=== PATIENT | female | born 1980 | race Caucasian/White ===

== ENCOUNTER 2018-06-12 19:32 | Emergency (ER) | payer BC ==
--- NOTE | 2018-06-12 20:10 | RAD REPORT ---
EXAM DESCRIPTION: CT - Ct Stroke Brain Wo Cont - 06/12/2018 7:58 pm CLINICAL HISTORY: TIA/CVA COMPARISON: None TECHNIQUE: All CT scans are performed using dose optimization technique as appropriate and may inclu de automated exposure control or mA/KV adjustment according to patient size. FINDINGS: No intracranial hemorrhage, hydrocephalus or extra-axial fluid collection.No areas of brai n edema or evidence of midline shift. The paranasal sinuses and mastoids are clear. The calvarium is intact. IMPRESSION: No acute intracranial abnormality.
[2018-06-12 20:11] LABS: Absolute Lymphocytes (CBC) 3.4 K/uL (0.7-4.9); Absolute Monocytes 0.9 K/uL (0.1-1.3); Absolute Neutrophil 4.3 K/uL (1.8-8.0); Basophils % 0.8 % (0-1.3); Eosinophils % 5.9 % (0-4.4); Hematocrit 44.2 % (36.0-45.0); Lymphocytes % 36.9 % (15.3-44.8); MCH 30.6 pg (27.0-35.0); MCV 90.4 fL (80-100); Monocytes % 9.8 % (3.3-12.3); RBC Red Blood Cell Count 4.89 M/uL (3.86-4.86)
[2018-06-12 20:17] LABS: Protime INR 1.07
[2018-06-12] MEDS ORDERED: NA CHLORIDE 0.9% 1,000 ML ONE (20:18)
[2018-06-12] MEDS ORDERED: ALTEPLASE 100 ML IV ONE (20:25)
--- NOTE | 2018-06-12 20:25 | EDPHYS ---
Physician Documentation [facility] Name: Padma Raya Age: 37 yrs Sex: Female : 1980 Arrival Date: 06/12/2018 Time: 19:35 Bed 4 Private MD: ED Physician Mirza Au HPI: 06/12 20:12 This 37 yrs old Female presents to ER via Ambulatory with complaints of [facility] Dizziness. 20:12 The patient presents with dizziness, generalized weakness, lightheadedness. [facility] SPECIFICATION MANAGER: 20:30 LMP 06/12/2018 lp1 Historical: - Allergies: 19:57 No Known Allergies; aj - Home Meds: 19:57 None [Active]; aj - PMHx: 19:57 None; aj - PSHx: 19:57 Ectopic ; aj - Immunization history:: Adult Immunizations up to date. - Social history:: Smoking status: Patient/guardian denies using tobacco. - Ebola Screening: : Patient negative for fever greater than or equal to 101.5 degrees Fahrenheit, and additional compatible Ebola Virus Disease symptoms Patient denies exposure to infectious person Patient denies travel to an Ebola-affected area in the 21 days before illness onset No symptoms or risks identified at this time. ROS: 20:14 Constitutional: Negative for fever, chills, and weight loss, Eyes: Negative for injury, cathy pain, redness, and discharge, ENT: Negative for injury, pain, and discharge, Neck: Negative for injury, pain, and swelling, Cardiovascular: Negative for chest pain, palpitations, and edema, Respiratory: Negative for shortness of breath, cough, wheezing, and pleuritic chest pain, Abdomen/GI: Negative for abdominal pain, nausea, vomiting, diarrhea, and constipation, Back: Negative for injury and pain, : Negative for injury, bleeding, discharge, and swelling, MS/Extremity: Negative for injury and deformity, Skin: Negative for injury, rash, and discoloration, Psych: Negative for depression, anxiety, suicide ideation, homicidal ideation, and hallucinations, Allergy/Immunology: Negative for hives, rash, and allergies, Endocrine: Negative for neck swelling, polydipsia, polyuria, polyphagia, and marked weight changes, Hematologic/Lymphatic: Negative for swollen nodes, abnormal bleeding, and unusual bruising. 20:14 Neuro: Positive for altered mental status, weakness, of the left leg. Exam: 20:14 Radiologist reports: neg cathy 20:14 Constitutional: This is a well developed, well nourished patient who is awake, alert, and in no acute distress. Head/Face: Normocephalic, atraumatic. Eyes: Pupils equal round and reactive to light, extra-ocular motions intact. Lids and lashes normal. Conjunctiva and sclera are non-icteric and not injected. Cornea within normal limits. Periorbital areas with no swelling, redness, or edema. ENT: Nares patent. No nasal discharge, no septal abnormalities noted. Tympanic membranes are normal and external auditory canals are clear. Oropharynx with no redness, swelling, or masses, exudates, or evidence of obstruction, uvula midline. Mucous membranes moist. Neck: Trachea midline, no thyromegaly or masses palpated, and no cervical lymphadenopathy. Supple, full range of motion without nuchal rigidity, or vertebral point tenderness. No Meningismus. Chest/axilla: Normal chest wall appearance and motion. Nontender with no deformity. No lesions are appreciated. Cardiovascular: Regular rate and rhythm with a normal S1 and S2. No gallops, murmurs, or rubs. Normal PMI, no JVD. No pulse deficits. Respiratory: Lungs have equal breath sounds bilaterally, clear to auscultation and percussion. No rales, rhonchi or wheezes noted. No increased work of breathing, no retractions or nasal flaring. Abdomen/GI: Soft, non-tender, with normal bowel sounds. No distension or tympany. No guarding or rebound. No evidence of tenderness throughout. Back: No spinal tenderness. No costovertebral tenderness. Full range of motion. Skin: Warm, dry with normal turgor. Normal color with no rashes, no lesions, and no evidence of cellulitis. MS/ Extremity: Pulses equal, no cyanosis. Neurovascular intact. Full, normal range of motion. Psych: Awake, alert, with orientation to person, place and time. Behavior, mood, and affect are within normal limits. 20:14 Neuro: Orientation: is normal, appropriate for stated age, no acute changes, Mentation: is normal, appropriate for stated age, no acute changes, Memory: is normal, appropriate for stated age, no acute changes, Cranial nerves: grossly normal, is grossly normal based on the patient's age, no acute changes, Cerebellar function: dysmetria is noted on the left, Motor: strength is 4/5 in the left leg, Gait: not applicable Deep tendon reflexes are 2+ (normal) in the bilateral brachioradialis, bicep, tricep and patellar and Achilles tendons. Vital Signs: 19:57 BP 145 / 107; Pulse 87; Resp 19; Temp 99.0; Pulse Ox 100% on R/A; Weight 63.5 kg; aj Height 5 ft. 6 in. (167.64 cm); 20:20 Weight 68.3 kg (M); lp1 20:40 BP 139 / 98; Pulse 85; Resp 16; Pulse Ox 99% on R/A; mt 20:40 lp1 21:10 BP 115 / 77; Pulse 71; Resp 17; Pulse Ox 98% on R/A; lp1 20:20 Body Mass Index 24.30 (68.30 kg, 167.64 cm) lp1 20:40 See TPA vitals signs flowsheet lp1 NIH Stroke Scale Scores: 20:10 NIHSS Score: 3 lp1 20:10 NIHSS Score: 3 lp1 20:21 NIHSS Score: 7 cathy 21:10 NIHSS Score: 2 lp1 MDM: 20:02 Patient medically screened. [facility] 20:17 Data reviewed: vital signs, nurses notes, lab test result(s), EKG, radiologic studies, [facility] CT scan, plain films. 06/12 19:53 Order name: Basic Metabolic Panel 06/12 19:53 Order name: CBC with Diff 06/12 19:53 Order name: Protime (+inr) 06/12 19:53 Order name: Ptt, Activated 06/12 19:54 Order name: Basic Metabolic Panel; Complete Time: 20:34 EDCO 06/12 19:54 Order name: CBC with Automated Diff; Complete Time: 20:18 EDCO 06/12 19:53 Order name: CT Stroke Brain w/o Contrast; Complete Time: 20:18 06/12 19:54 Order name: Protime (+INR); Complete Time: 20:34 EDCO 06/12 19:54 Order name: PTT, Activated Partial Thromb; Complete Time: 20:34 EDCO 06/12 20:04 Order name: Sed Rate; Complete Time: 21:17 [facility] 06/12 20:11 Order name: C-Reactive Protein; Complete Time: 20:34 EDMS 06/12 20:43 Order name: Urine Dipstick--Ancillary (enter results); Complete Time: 21:17 ms 06/12 20:43 Order name: Urine --Ancillary (enter results); Complete Time: 21:17 az 06/12 19:53 Order name: Stroke CXR 1 View; Complete Time: 20:34 06/12 19:53 Order name: EKG; Complete Time: 19:54 06/12 19:53 Order name: Accucheck; Complete Time: 20:09 06/12 19:53 Order name: Cardiac monitoring; Complete Time: 20:10 06/12 19:53 Order name: EKG - Nurse/Tech; Complete Time: 20:10 06/12 19:53 Order name: IV Saline Lock; Complete Time: 20:10 06/12 19:53 Order name: Labs collected and sent; Complete Time: 20:10 06/12 19:53 Order name: NPO; Complete Time: 20:16 06/12 19:53 Order name: O2 Per Protocol; Complete Time: 20:16 06/12 19:53 Order name: O2 Sat Monitoring; Complete Time: 20:16 06/12 19:53 Order name: Stroke Swallow Screen; Complete Time: 21:06 06/12 20:04 Order name: Urine Test (obtain specimen); Complete Time: 21:05 cathy Administered Medications: 20:40 Drug: ACTIvase 57 mg {Co-Signature: cc3 (Kaylee Holman).} Route: IV; Rate: calculated lp1 rate; Infused Over: 60 mins; Site: right antecubital; 21:30 Follow up: IV Status: Infusion continued upon transfer lp1 20:43 Drug: NS 0.9% 1000 ml Route: IV; Rate: 1 bolus; Site: left antecubital; lp1 21:30 Follow up: IV Status: Infusion continued upon transfer lp1 20:44 Drug: foLIC Acid 1 mg Route: IVPB; Site: left antecubital; lp1 21:05 Follow up: IV Status: Completed infusion; IV Intake: 50ml bp 20:44 Drug: Aspirin Chewable Tablet 324 mg Route: PO; lp1 21:06 Follow up: Response: No adverse reaction bp Point of Care Testing: Blood Glucose: 20:04 Blood Glucose: 110 mg/dL; lp1 Ranges: Critical Glucose Levels:Adult <50 mg/dl or >400 mg/dl <40 mg/dl or >180 mg/dl Disposition: 06/12/18 20:24 Transfer ordered to [facility]. Diagnosis are Cerebral infarction, Weakness, Aphasia. - Reason for transfer: Higher level of care. - Accepting physician is to [facility]. - Condition is Stable. - Problem is new. - Symptoms have improved. NIH Stroke Scale - NIH Stroke Score Date: 06/12/2018 Time: 20:10 Total Score = 3 1a. Level of Consciousness (LOC) - 0(Alert) 1b. Level of Consciousness (LOC) (Year \T\ Age) - 0(Both) 1c. LOC Commands (Open \T\ Closes Eyes/Blue Prints Trimmer) - 0(Both) 2. Best Gaze (Lateral Gaze Paresis) - 0(Normal) 3. Visual Field Loss - 0(No visual loss) 4. Facial Palsy - 0(Normal) 5a. Left Arm: Motor (10-second hold) - 0(No drift) 5b. Right Arm: Motor (10-second hold) - 0(No drift) 6a. Left Leg: Motor (5-second hold - always test supine) - 2(Drift, some effort against gravity) 6b. Right Leg: Motor (5-second hold - always test supine) - 0(No drift) 7. Limb Ataxia (finger/nose \T\ heel/mcbride - test with eyes open) - 0(Absent) 8. Sensory Loss (pinprick arms/legs/face) - 0(Normal) 9. Best Language: Aphasia (description/naming/reading) - 1(Mild to moderate aphasia) 10. Dysarthria (speech clarity - read or repeat words) - 0(Normal) 11. Extinction and Inattention (visual/tactile/auditory/spatial/personal) - 0(No abnormality) Initials: lp1 NIH Stroke Scale - NIH Stroke Score Date: 06/12/2018 Time: 20:10 Total Score = 3 1a. Level of Consciousness (LOC) - 0(Alert) 1b. Level of Consciousness (LOC) (Year \T\ Age) - 0(Both) 1c. LOC Commands (Open \T\ Closes Eyes/Blue Prints Trimmer) - 0(Both) 2. Best Gaze (Lateral Gaze Paresis) - 0(Normal) 3. Visual Field Loss - 0(No visual loss) 4. Facial Palsy - 0(Normal) 5a. Left Arm: Motor (10-second hold) - 0(No drift) 5b. Right Arm: Motor (10-second hold) - 0(No drift) 6a. Left Leg: Motor (5-second hold - always test supine) - 2(Drift, some effort against gravity) 6b. Right Leg: Motor (5-second hold - always test supine) - 0(No drift) 7. Limb Ataxia (finger/nose \T\ heel/mcbride - test with eyes open) - 0(Absent) 8. Sensory Loss (pinprick arms/legs/face) - 0(Normal) 9. Best Language: Aphasia (description/naming/reading) - 1(Mild to moderate aphasia) 10. Dysarthria (speech clarity - read or repeat words) - 0(Normal) 11. Extinction and Inattention (visual/tactile/auditory/spatial/personal) - 0(No abnormality) Initials: lp1 NIH Stroke Scale - NIH Stroke Score Date: 06/12/2018 Time: 20:21 Total Score = 7 1a. Level of Consciousness (LOC) - 0(Alert) 1b. Level of Consciousness (LOC) (Year \T\ Age) - 0(Both) 1c. LOC Commands (Open \T\ Closes Eyes/Blue Prints Trimmer) - 0(Both) 2. Best Gaze (Lateral Gaze Paresis) - 0(Normal) 3. Visual Field Loss - 0(No visual loss) 4. Facial Palsy - 0(Normal) 5a. Left Arm: Motor (10-second hold) - 0(No drift) 5b. Right Arm: Motor (10-second hold) - 0(No drift) 6a. Left Leg: Motor (5-second hold - always test supine) - 2(Drift, some effort against gravity) 6b. Right Leg: Motor (5-second hold - always test supine) - 0(No drift) 7. Limb Ataxia (finger/nose \T\ heel/mcbride - test with eyes open) - 2(Present in two limbs) 8. Sensory Loss (pinprick arms/legs/face) - 0(Normal) 9. Best Language: Aphasia (description/naming/reading) - 1(Mild to moderate aphasia) 10. Dysarthria (speech clarity - read or repeat words) - 1(Mild to Moderate) 11. Extinction and Inattention (visual/tactile/auditory/spatial/personal) - 1(Present) Initials: cathy NIH Stroke Scale - NIH Stroke Score Date: 06/12/2018 Time: 21:10 Total Score = 2 1a. Level of Consciousness (LOC) - 0(Alert) 1b. Level of Consciousness (LOC) (Year \T\ Age) - 0(Both) 1c. LOC Commands (Open \T\ Closes Eyes/Blue Prints Trimmer) - 0(Both) 2. Best Gaze (Lateral Gaze Paresis) - 0(Normal) 3. Visual Field Loss - 0(No visual loss) 4. Facial Palsy - 0(Normal) 5a. Left Arm: Motor (10-second hold) - 0(No drift) 5b. Right Arm: Motor (10-second hold) - 0(No drift) 6a. Left Leg: Motor (5-second hold - always test supine) - 2(Drift, some effort against gravity) 6b. Right Leg: Motor (5-second hold - always test supine) - 0(No drift) 7. Limb Ataxia (finger/nose \T\ heel/mcbride - test with eyes open) - 0(Absent) 8. Sensory Loss (pinprick arms/legs/face) - 0(Normal) 9. Best Language: Aphasia (description/naming/reading) - 0(No aphasia) 10. Dysarthria (speech clarity - read or repeat words) - 0(Normal) 11. Extinction and Inattention (visual/tactile/auditory/spatial/personal) - 0(No abnormality) Initials: lp1 Signatures: Dispatcher [employer] [facility] Ashlie Barraza RN RN aj Anderson, Corey, MD MD cha Pena, Laura, RN RN lp1 Linwood Blanco RN Kaylee Holman cc3 Corrections: (The following items were deleted from the chart) 20:10 20:04 C-REACTIVE PROTEIN+C.LAB.BRZ ordered. [facility] 21:41 20:24 06/12/2018 20:24 Transfer ordered to [facility]. lp1 Diagnosis is Cerebral infarction; Weakness; Aphasia. Reason for transfer: Higher level of care. Accepting physician is to [facility]. Condition is Stable. Problem is new. Symptoms have improved. cathy
--- NOTE | 2018-06-12 20:25 | ER ---
Nurse's Notes [facility] Name: Padma Raya Age: 37 yrs Sex: Female : 1980 Arrival Date: 06/12/2018 Time: 19:35 Bed 4 Private MD: Diagnosis: Cerebral infarction;Weakness;Aphasia Presentation: 06/12 19:50 An acute neurological deficit is present. The charge nurse has been notified. aj Pre-hospital glucose is not applicable to this patient. Onset of symptoms was June 12, 2018 at 18:30. Risk Assessment: Do you want to hurt yourself or someone else? Patient reports no desire to harm self or others. Initial Sepsis Screen: Does the patient meet any 2 criteria? No. Patient's initial sepsis screen is negative. Does the patient have a suspected source of infection? No. Patient's initial sepsis screen is negative. Care prior to arrival: None. 19:50 Acuity: MADY 2 aj 19:54 Presenting complaint: Patient states: Reports sudden onset pain to left posterior head aj that started at 1830. Patient reports confusion and dizziness. Patient was unable to reverse her car to drive. Reports tingling in bilateral hands. Transition of care: patient was not received from another setting of care. 19:54 Method Of Arrival: Ambulatory Triage Assessment: 19:57 The onset of the patients symptoms was June 12, 2018 at 18:30. General: Appears in aj no apparent distress. uncomfortable, Behavior is anxious, crying. Pain: Complains of pain in left frontal area, left side of the back of head, left temporal area, left occipital area, left ear and left base of the skull Pain currently is 10 out of 10 on a pain scale. Neuro: Level of Consciousness is awake, alert, obeys commands, Oriented to person, place, time, situation, Appropriate for age Tooth Cutter are equal bilaterally Moves all extremities. Gait is steady, Speech is normal, Facial symmetry appears normal, Tingling in right hand and left hand Reports dizziness, headache in left parietal area, that is the "worst ever". Respiratory: Airway is patent Respiratory effort is even, unlabored, Respiratory pattern is regular, symmetrical. Derm: Skin is intact, is healthy with good turgor, Skin is pink, warm \\T\\ dry. normal. 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 - Social history:: Smoking status: Patient/guardian denies using tobacco. - Ebola Screening: : Patient negative for fever greater than or equal to 101.5 degrees Fahrenheit, and additional compatible Ebola Virus Disease symptoms Patient denies exposure to infectious person Patient denies travel to an Ebola-affected area in the 21 days before illness onset No symptoms or risks identified at this time. Screenin:15 Patient has been NPO before screening. The patient is alert, able to follow commands. lp1 The patient does not exhibit slurred or garbled speech The patient is not exhibiting difficulty speaking. The patient does not exhibit difficulty understanding words. The patient is able to swallow own secretions with no drooling or need for suction. Patient tolerated one teaspoon of water. No drooling, immediate coughing, gurgling, or clearing of the throat was noted. The patient tolerated 90mL of water. No drooling, immediate coughing, gurgling, or clearing of the throat was noted. The patient passed the bedside swallow screening. Oral medications may be given as ordered. Contact Physician for further diet orders. 20:17 Abuse screen: Denies threats or abuse. Denies injuries from another. Nutritional bp screening: No deficits noted. Tuberculosis screening: No symptoms or risk factors identified. Fall Risk No fall in past 12 months (0 pts). Secondary diagnosis (15 points) CVA, IV access (20 points). Ambulatory Aid- None/Bed Rest/Nurse Assist (0 pts). Gait- Normal/Bed Rest/Wheelchair (0 pts) Mental Status- Oriented to own ability (0 pts). Total Luna Fall Scale indicates Low Risk Score (25-44 pts). Fall prevention measures have been instituted. Side Rails Up X 2 Placed close to Nursing Station Frequent Obs/Assesments occuring Family Present and informed to notify staff if they need to leave bedside As available Patient and Family Educated on Fall Prevention Program and strategies. Assessment: 20:15 Patient has been NPO before screening. The patient is alert, and able to follow lp1 commands. The patient does not exhibit slurred or garbled speech. The patient is not exhibiting difficulty speaking. The patient does not exhibit difficulty understanding words. The patient is able to swallow own secretions with no drooling or need for suction. Patient tolerated one teaspoon of water. No drooling, immediate coughing, gurgling, or clearing of the throat was noted. The patient tolerated 90mL of water. No drooling, immediate coughing, gurgling, or clearing of the throat was noted. The patient passed the bedside swallow screening. Oral medications may be given as ordered. Contact Physician for further diet orders. Provider notified of bedside swallow screening results: Mirza Au MD. 20:15 General: Appears uncomfortable, well groomed, Behavior is anxious, crying. Pain: Denies lp1 pain. Neuro: Level of Consciousness is awake, alert, obeys commands, Oriented to person, place, time, situation, Tooth Cutter are equal bilaterally Weakness in left leg(s) Gait is steady, Speech is normal, Facial symmetry appears normal, Pupils are PERRLA, Tingling in right hand and left hand Reports weakness in left leg "I feel like I can't focus on anything, like there is a lot going on in my head". Cardiovascular: Patient's skin is warm and dry. Rhythm is sinus rhythm. Respiratory: Respiratory effort is even, unlabored, Breath sounds are clear bilaterally. GI: No signs and/or symptoms were reported involving the gastrointestinal system. : No signs and/or symptoms were reported regarding the genitourinary system. EENT: No signs and/or symptoms were reported regarding the EENT system. Derm: Skin is pink, warm \\T\\ dry. Musculoskeletal: Range of motion: intact in all extremities. 20:30 T-PA (Activase) Screening: Indications: Definite evidence of stroke, ischemic, embolic, lp1 or hypertensive: Yes. Treatment will start within 4.5 hours onset of symptoms: Yes. No evidence of intracranial hemorrhage or CT of head and no evidence of peripheral hemorrhage or recent CVA: Yes. Consent for thrombolytic therapy: Yes. 20:45 Reassessment: TPA infusing at this time, patient interacting with family at bedside; No lp1 aphasia noted. 20:54 Reassessment: Report called to LEXI Weiss at [facility] for patient going to ER. lp1 21:00 Reassessment: Patient states "It doesn't feel so chaotic in my head anymore"; Denies lp1 any tingling in bilateral hands; Continued drift to left leg. 21:25 Reassessment: LEXI Weiss called back to update that patient received room in ICU going lp1 to [address] [place] [address] Bed 5. 21:35 Reassessment: Attempted to call report to ICU, nurse states she will call back for lp1 report. 22:43 Reassessment: Report given to LEXI Lopez at [facility]. lp1 Vital Signs: 19:57 BP 145 / 107; Pulse 87; Resp 19; Temp 99.0; Pulse Ox 100% on R/A; Weight 63.5 kg; aj Height 5 ft. 6 in. (167.64 cm); 20:20 Weight 68.3 kg (M); lp1 20:40 BP 139 / 98; Pulse 85; Resp 16; Pulse Ox 99% on R/A; mt 20:40 lp1 21:10 BP 115 / 77; Pulse 71; Resp 17; Pulse Ox 98% on R/A; lp1 20:20 Body Mass Index 24.30 (68.30 kg, 167.64 cm) lp1 20:40 See TPA vitals signs flowsheet lp1 NIH Stroke Scale Scores: 20:10 NIHSS Score: 3 lp1 20:10 NIHSS Score: 3 lp1 20:21 NIHSS Score: 7 cathy 21:10 NIHSS Score: 2 lp1 ED Course: 19:35 Patient arrived in ED. am2 19:49 Yeny Nassar, RN is Primary Nurse. lp1 19:57 Triage completed. aj 19:57 Arm band placed on left wrist. Patient placed in an exam room. aj 19:58 CT Stroke Brain w/o Contrast In Process Unspecified. EDMS 20:02 Mirza Au MD is Attending Physician. cathy 20:02 EKG done, by ED staff, reviewed by Mirza Au MD. lp1 20:03 Inserted saline lock: 20 gauge in right antecubital area, using aseptic technique. bp Blood collected. 20:12 X-ray(s) taken. lp1 20:15 Patient has correct armband on for positive identification. Placed in gown. Bed in low lp1 position. Call light in reach. custodian on. Pulse ox on. NIBP on. 20:19 X-ray completed. Portable x-ray completed in exam room. Patient tolerated procedure ml well. 20:21 Stroke CXR 1 View In Process Unspecified. EDMS 20:38 Inserted saline lock: 20 gauge in left antecubital area, using aseptic technique. mt 21:10 No provider procedures requiring assistance completed. lp1 21:36 Patient transferred, IV remains in place. lp1 Administered Medications: 20:40 Drug: ACTIvase 57 mg {Co-Signature: cc3 (Kaylee Holman).} Route: IV; Rate: calculated lp1 rate; Infused Over: 60 mins; Site: right antecubital; 21:30 Follow up: IV Status: Infusion continued upon transfer lp1 20:43 Drug: NS 0.9% 1000 ml Route: IV; Rate: 1 bolus; Site: left antecubital; lp1 21:30 Follow up: IV Status: Infusion continued upon transfer lp1 20:44 Drug: foLIC Acid 1 mg Route: IVPB; Site: left antecubital; lp1 21:05 Follow up: IV Status: Completed infusion; IV Intake: 50ml bp 20:44 Drug: Aspirin Chewable Tablet 324 mg Route: PO; lp1 21:06 Follow up: Response: No adverse reaction bp Point of Care Testing: Blood Glucose: 20:04 Blood Glucose: 110 mg/dL; lp1 Ranges: Intake: 21:05 IV: 50ml; Total: 50ml. bp Outcome: 20:24 ER care complete, transfer ordered by . [facility] 21:10 Condition: stable lp1 21:10 Instructed on the need for transfer. 21:30 Transferred by ground EMS to [facility], Transfer form completed. lp1 X-rays sent w/ patient. 21:30 Patient left the ED. lp1 NIH Stroke Scale - NIH Stroke Score Date: 06/12/2018 Time: 20:10 Total Score = 3 1a. Level of Consciousness (LOC) - 0(Alert) 1b. Level of Consciousness (LOC) (Year \\T\\ Age) - 0(Both) 1c. LOC Commands (Open \\T\\ Closes Eyes/Ramp Lead) - 0(Both) 2. Best Gaze (Lateral Gaze Paresis) - 0(Normal) 3. Visual Field Loss - 0(No visual loss) 4. Facial Palsy - 0(Normal) 5a. Left Arm: Motor (10-second hold) - 0(No drift) 5b. Right Arm: Motor (10-second hold) - 0(No drift) 6a. Left Leg: Motor (5-second hold - always test supine) - 2(Drift, some effort against gravity) 6b. Right Leg: Motor (5-second hold - always test supine) - 0(No drift) 7. Limb Ataxia (finger/nose \\T\\ heel/mcbride - test with eyes open) - 0(Absent) 8. Sensory Loss (pinprick arms/legs/face) - 0(Normal) 9. Best Language: Aphasia (description/naming/reading) - 1(Mild to moderate aphasia) 10. Dysarthria (speech clarity - read or repeat words) - 0(Normal) 11. Extinction and Inattention (visual/tactile/auditory/spatial/personal) - 0(No abnormality) Initials: lp1 NIH Stroke Scale - NIH Stroke Score Date: 06/12/2018 Time: 20:10 Total Score = 3 1a. Level of Consciousness (LOC) - 0(Alert) 1b. Level of Consciousness (LOC) (Year \\T\\ Age) - 0(Both) 1c. LOC Commands (Open \\T\\ Closes Eyes/Ramp Lead) - 0(Both) 2. Best Gaze (Lateral Gaze Paresis) - 0(Normal) 3. Visual Field Loss - 0(No visual loss) 4. Facial Palsy - 0(Normal) 5a. Left Arm: Motor (10-second hold) - 0(No drift) 5b. Right Arm: Motor (10-second hold) - 0(No drift) 6a. Left Leg: Motor (5-second hold - always test supine) - 2(Drift, some effort against gravity) 6b. Right Leg: Motor (5-second hold - always test supine) - 0(No drift) 7. Limb Ataxia (finger/nose \\T\\ heel/mcbride - test with eyes open) - 0(Absent) 8. Sensory Loss (pinprick arms/legs/face) - 0(Normal) 9. Best Language: Aphasia (description/naming/reading) - 1(Mild to moderate aphasia) 10. Dysarthria (speech clarity - read or repeat words) - 0(Normal) 11. Extinction and Inattention (visual/tactile/auditory/spatial/personal) - 0(No abnormality) Initials: lp1 NIH Stroke Scale - NIH Stroke Score Date: 06/12/2018 Time: 20:21 Total Score = 7 1a. Level of Consciousness (LOC) - 0(Alert) 1b. Level of Consciousness (LOC) (Year \\T\\ Age) - 0(Both) 1c. LOC Commands (Open \\T\\ Closes Eyes/Ramp Lead) - 0(Both) 2. Best Gaze (Lateral Gaze Paresis) - 0(Normal) 3. Visual Field Loss - 0(No visual loss) 4. Facial Palsy - 0(Normal) 5a. Left Arm: Motor (10-second hold) - 0(No drift) 5b. Right Arm: Motor (10-second hold) - 0(No drift) 6a. Left Leg: Motor (5-second hold - always test supine) - 2(Drift, some effort against gravity) 6b. Right Leg: Motor (5-second hold - always test supine) - 0(No drift) 7. Limb Ataxia (finger/nose \\T\\ heel/mcbride - test with eyes open) - 2(Present in two limbs) 8. Sensory Loss (pinprick arms/legs/face) - 0(Normal) 9. Best Language: Aphasia (description/naming/reading) - 1(Mild to moderate aphasia) 10. Dysarthria (speech clarity - read or repeat words) - 1(Mild to Moderate) 11. Extinction and Inattention (visual/tactile/auditory/spatial/personal) - 1(Present) Initials: cathy NIH Stroke Scale - NIH Stroke Score Date: 06/12/2018 Time: 21:10 Total Score = 2 1a. Level of Consciousness (LOC) - 0(Alert) 1b. Level of Consciousness (LOC) (Year \\T\\ Age) - 0(Both) 1c. LOC Commands (Open \\T\\ Closes Eyes/Ramp Lead) - 0(Both) 2. Best Gaze (Lateral Gaze Paresis) - 0(Normal) 3. Visual Field Loss - 0(No visual loss) 4. Facial Palsy - 0(Normal) 5a. Left Arm: Motor (10-second hold) - 0(No drift) 5b. Right Arm: Motor (10-second hold) - 0(No drift) 6a. Left Leg: Motor (5-second hold - always test supine) - 2(Drift, some effort against gravity) 6b. Right Leg: Motor (5-second hold - always test supine) - 0(No drift) 7. Limb Ataxia (finger/nose \\T\\ heel/mcbride - test with eyes open) - 0(Absent) 8. Sensory Loss (pinprick arms/legs/face) - 0(Normal) 9. Best Language: Aphasia (description/naming/reading) - 0(No aphasia) 10. Dysarthria (speech clarity - read or repeat words) - 0(Normal) 11. Extinction and Inattention (visual/tactile/auditory/spatial/personal) - 0(No abnormality) Initials: lp1 Signatures: Dispatcher [employer] EDAshlie Fitch, RN Mirza Sesay MD MD cha Ballard, Brenda, RN RN Sumaya Francis Laura, RN RN lp1 Ashlie Nathan am2 Kristi Musnon mt, Brian RN RN bp Kaylee Holman cc3 Corrections: (The following items were deleted from the chart) 21:09 20:15 Patient has been NPO before screening. The patient is alert, and able to lp1 follow commands. The patient does not exhibit slurred or garbled speech. The patient is not exhibiting difficulty speaking. The patient does not exhibit difficulty understanding words. The patient is able to swallow own secretions with no drooling or need for suction. Patient tolerated one teaspoon of water. No drooling, immediate coughing, gurgling, or clearing of the throat was noted. The patient tolerated 90mL of water. No drooling, immediate coughing, gurgling, or clearing of the throat was noted. The patient passed the bedside swallow screening. Oral medications may be given as ordered. Contact Physician for further diet orders. lp1 21:42 21:36 Transferred by ground EMS to [facility], Transfer form lp1 completed. X-rays sent w/ patient. lp1 21:41 Patient left the ED. lp1 lp1 22:41 Reassessment: Report given to LEXI Lopez at [place] [id number] 21:35 Reassessment: Attempted to call report to ICU, states they will call back [facility]
[2018-06-12] MEDS ORDERED: NA CHLORIDE 0.9% 100 ML IV ONE (20:26)
[2018-06-12 20:28] LABS: BUN Blood Urea Nitrogen 12 mg/dL (7-18); Bicarbonate 29 mmol/L (21-32); C-Reactive Protein < 2.90 mg/L (<3.00); Glucose Level 97 mg/dL (74-106); Sodium Level 139 mmol/L (136-145)
--- NOTE | 2018-06-12 20:30 | RAD REPORT ---
EXAM DESCRIPTION: RAD - Chest Single View - 06/12/2018 8:21 pm CLINICAL HISTORY: stroke Chest pain. COMPARISON: No comparisons FINDINGS: Portable technique limits examination quality. The lungs are grossly clear. The heart is normal in size. No displaced fractures. IMPRESSION: No acute intrathoracic process suspected.
[2018-06-12] MEDS ORDERED: ASPIRIN 81 MG CHEWABLE TABLET ONE (20:37)
[2018-06-12] MEDS ORDERED: FOLIC ACID 5 MG/ML VIAL ONE (20:38)
[2018-06-12] MEDS ORDERED: NA CHLORIDE 0.9% 50 ML IV ONE (20:38)
[2018-06-12 20:46] LABS: Urine Blood 2+ (NEG); Urine Glucose NEGATIVE (NEG); Urine Protein NEGATIVE (NEG); Urine Specific Gravity 1.015 (1.005-1.030)
== END 2018-06-12 21:41 | disposition short-term general hospital (02) ==
LOC: ER 19:32
DX: I63.9 Cerebral infarction, unspecified (principal); R47.01 Aphasia; R29.703 NIHSS score 3
CPT/HCPCS: 36415; 70450; 71045; 80048; 81003; 81025; 82962; 85025; 85610; 85652; 85730; 86140; 93005; J2997; J7030

== ENCOUNTER 2018-08-23 11:42 | Emergency (ER) | payer BC ==
--- OUTSIDE RECORDS SUMMARY | 2018-08-23 11:44 | XMS REPORT | Clinical Summary ---
:1980 Author Organization [facility] Address [address] [place] [address] Care Team Providers Name Role Phone Pcp, No Primary Care Provider Unavailable Allergies No Known Allergies Medications No known medications Active Problems Problem Noted Date Stroke 06/12/2018 S/P admn tPA in diff fac w/n last 24 hr bef adm to crnt fac 06/12/2018 Encounters Date Type Specialty Care Team Description 06/12/2018 - Hospital Encounter Intensive Care Nigel [place] Acute ischemic stroke (HCC); 06/14/2018 MD Nikita S/P admn tPA in diff fac w/n last 24 hr bef adm to crnt fac after 08/22/2017 Social History Tobacco Use Types Packs/Day Years Used Date Never Smoker Smokeless Tobacco: Never Used Alcohol Use Drinks/Week oz/Week Comments Yes 2 Glasses of wine 1.2 2 glasses of wine per month Sex Assigned at Date Recorded Not on file Job Start Date Occupation Industry Not on file Not on file Not on file Travel History Travel Start Travel End No recent travel history available. Last Filed Vital Signs Vital Sign Reading Time Taken Blood Pressure 104/72 06/14/2018 10:00 AM CDT Pulse 86 06/14/2018 10:00 AM CDT Temperature 36.7 C (98 F) 06/14/2018 8:00 AM CDT Respiratory Rate 28 06/14/2018 10:00 AM CDT Oxygen Saturation 95% 06/14/2018 10:00 AM CDT Inhaled Oxygen Concentration - - Weight 63.6 kg (140 lb 3.2 oz) 06/12/2018 11:00 PM CDT Height 167.6 cm (5' 6") 06/12/2018 11:00 PM CDT Body Mass Index 22.63 06/12/2018 11:00 PM CDT Plan of Treatment Not on file Procedures Procedure Name Priority Date/Time Associated Comments Diagnosis RHYTHM STRIP - SCAN 06/17/2018 3:10 PM CDT CBC W/PLT COUNT & Routine 06/14/2018 4:27 Results for this AUTO DIFFERENTIAL AM CDT procedure are in the results section. CBC W/PLT COUNT & Routine 06/14/2018 4:27 Results for this AUTO DIFFERENTIAL AM CDT procedure are in the results section. MR BRAIN WITHOUT IV Routine 06/14/2018 3:54 Results for this CONTRAST AM CDT procedure are in the results section. RAPID DRUG SCREEN, Routine 06/13/2018 9:00 Results for this URINE PM CDT procedure are in the results section. CBC W/PLT COUNT & Routine 06/13/2018 3:44 Results for this AUTO DIFFERENTIAL AM CDT procedure are in the results section. HEMOGLOBIN A1C Routine 06/13/2018 3:44 Results for this AM CDT procedure are in the results section. LIPID PANEL Routine 06/13/2018 3:44 Results for this AM CDT procedure are in the results section. TSH/FREE T4 IF Routine 06/13/2018 3:44 Results for this INDICATED AM CDT procedure are in the results section. VITAMIN B12 Routine 06/13/2018 3:44 Results for this AM CDT procedure are in the results section. CBC W/PLT COUNT & Routine 06/13/2018 3:44 Results for this AUTO DIFFERENTIAL AM CDT procedure are in the results section. BASIC METABOLIC PANEL Routine 06/13/2018 3:44 Results for this (7) AM CDT procedure are in the results section. URINALYSIS WITH Routine 06/13/2018 12:43 Results for this MICROSCOPIC IF AM CDT procedure are in INDICATED the results section. CT/CTA BRAIN STAT 06/13/2018 12:32 Results for this AM CDT procedure are in the results section. CT/CTA CAROTID STAT 06/13/2018 12:32 Results for this AM CDT procedure are in the results section. after 08/22/2017 Results RHYTHM STRIP - SCAN (06/17/2018 3:10 PM CDT) Narrative Performed At CBC with platelet count + automated diff (06/14/2018 4:27 AM CDT)Only the most recent of2 resultswithin the time period is included. WBC 6.8 3.5 - 10.5 K/L [facility] RBC 4.70 3.93 - 5.22 M/L [facility] Hemoglobin 13.8 11.2 - 15.7 GM/DL [facility] Hematocrit 42.8 34.1 - 44.9 % [facility] MCV 91.1 79.4 - 94.[address] [facility] MCH 29.4 25.6 - 32.[address] [facility] MCHC 32.2 32.2 - 35.5 GM/DL [facility] RDW 13.3 11.7 - 14.4 % [facility] Platelets 252 150 - 450 K/CU MM [facility] MPV 11.2 9.4 - 12.[address] [facility] nRBC 0 0 - 0 /[address] [facility] % Neutros 47 % [facility] % Lymphs 37 % [facility] % Monos 9 % [facility] % Eos 6 % [facility] % Baso 1 % [facility] # Neutros 3.21 1.56 - 6.13 K/L [facility] # Lymphs 2.53 1.18 - 3.74 K/L [facility] # Monos 0.62 (H) 0.24 - 0.36 K/L [facility] # Eos 0.38 (H) 0.04 - 0.36 K/L [facility] # Baso 0.06 0.01 - 0.08 K/L [facility] Immature Granulocytes-Relative 0 0 - 1 % [facility] Specimen Blood - Arm, Right Performing Organization Address City/State/Zipcode Phone Number [facility] [address] [place] [address] CENTER MR brain without IV contrast (06/14/2018 3:54 AM CDT) Narrative Performed At FINAL REPORT [facility] MR, BRAIN, WITHOUT CONTRAST INDICATION: Stroke Stroke TECHNIQUE: Multiplanar, multisequence MR imaging of the brain without intravenous contrast. COMPARISON: None FINDINGS: There is no restricted diffusion.No focal abnormal parenchymal signal is present. There is no mass effect or abnormal extra-axial fluid The ventricles are normal in size and configuration The larger intracranial vascular flow-voids are preserved. Mucosal polyposis versus retention cyst in the right maxillary chamber. No mastoid effusion. There is normal bone marrow signal intensity within the calvarium and skull base. IMPRESSION: Unremarkable unenhanced MRI of the brain. Signed: JR Castellon Robert MD Report Verified Date/Time:06/14/2018 04:28:39 Reading Location: [facility] CT Body Reading Room Procedure Note Interface, External Ris In - 06/14/2018 4:35 AM CDT FINAL REPORT MR, BRAIN, WITHOUT CONTRAST INDICATION: Stroke Stroke TECHNIQUE: Multiplanar, multisequence MR imaging of the brain without intravenous contrast. COMPARISON: None FINDINGS: There is no restricted diffusion. No focal abnormal parenchymal signal is present. There is no mass effect or abnormal extra-axial fluid The ventricles are normal in size and configuration The larger intracranial vascular flow-voids are preserved. Mucosal polyposis versus retention cyst in the right maxillary chamber. No mastoid effusion. There is normal bone marrow signal intensity within the calvarium and skull base. IMPRESSION: Unremarkable unenhanced MRI of the brain. Signed: JR Castellon Robert MD Report Verified Date/Time: 06/14/2018 04:28:39 Reading Location: [facility] B1 C013Y CT Body Reading Room Performing Organization Address City/State/Zipcode Phone Number [facility] Rapid drug screen, urine (06/13/2018 9:00 PM CDT) Barbiturate Screen Negative Negative [facility] Benzodiazepine Screen Negative Negative [facility] Cocaine (Metab.) Screen Negative Negative [facility] Methadone Screen Negative Negative [facility] Opiate Screen Negative Negative [facility] Cannabinoid Screen Negative Negative [facility] Amph/Methamph Screen Negative Negative [facility] Phencyclidine Screen Negative Negative [facility] Oxycodone Screen Negative Negative [facility] Specimen Urine - Urine, Voided Narrative Performed At [facility] DRUGCUTOFF CONC. Cocaine 300 ng/mL Jystqplemux57 ng/mL Wgemeadrxmgbcg517 ng/mL Barbiturate 200 ng/mL Uccbvquerqsgg71 ng/mL Dketdg283 ng/mL Methadone 300 ng/mL Amphetamine/ 1000 ng/mL Methamphetamine Oxycodone 300 ng/mL This assay provides an unconfirmed qualitative test result for the clinical management of patients in emergency situations. Chain of custody not maintained. Some avzd-ffd-vsvsqlr medications, as well as adulterants, may cause inaccurate results. Clinical correlation should be applied. A more comprehensive drug screen or confirmation of a detected drug may be performed upon request. Performing Organization Address City/[facility]/Zipcode Phone Number [address] [address] CENTER TSH/Free T4 If Indicated (06/13/2018 3:44 AM CDT) TSH 3.37 0.35 - 4.94 uIU/mL [facility] Specimen Blood - Arm, Right Performing Organization Address [facility] Cent[facility]ode Phone Number [address] [address] CENTER Hemoglobin A1c (06/13/2018 3:44 AM CDT) Hemoglobin A1C 5.7 4.3 - 6.1 % [facility] Specimen Blood - Arm, Right Performing Organization Address City/State/Zipcode Phone Number [facility] [address] [place] [address] [place] Vitamin B12 (06/13/2018 3:44 AM CDT) Vitamin B12 423 213 - 816 pg/mL [facility] Specimen Blood - Arm, Right Performing Organization Address City/[facility]/Zipcode Phone Number [address] [address] [place] Lipid panel (06/13/2018 3:44 AM CDT) Triglycerides 67 mg/dL [facility] Cholesterol 160 mg/dL [facility] HDL 31 mg/dL [facility] LDL Calculated 116 mg/dL [facility] Specimen Blood - Arm, Right Narrative Performed At [facility] Triglyceride Reference Range: Low Risk <150 [id number] High Risk 200-499 Very High Risk>=500 Cholesterol Reference Range: Low Risk <200 [id number] High Risk>240 HDL Cholesterol Reference Range: Low Risk >=60 High Risk <40 LDL Cholesterol Reference Range: Optimal<100 Near Dndnvos288-483 Enhqugvomb081-969 Ywye401-290 Very High >=190 Performing Organization Address City/[facility]/Zipcode Phone Number [address] [address] [phone] [place] Basic Metabolic Panel (06/13/2018 3:44 AM CDT) Sodium 140 136 - 145 meq/L [facility] Potassium 4.1 3.5 - 5.1 meq/L [facility] Chloride 111 (H) 98 - 107 meq/L [facility] CO2 21 (L) 22 - 29 meq/L [facility] BUN 10 7 - 21 mg/dL [facility] Creatinine 0.70 0.57 - 1.25 mg/dL [facility] Glucose 98 70 - 105 mg/dL [facility] Calcium 8.6 8.4 - 10.2 mg/dL [facility] EGFR Comment: INSUFFICIENT CLINICAL mL/min/1.73 sq m [facility] DATA TO CALCULATE ESTIMATED [facility] GFR. Specimen Blood - Arm, Right Performing Organization Address [facility] Centercode Phone Number [address] [address] [phone] [place] Urinalysis with Microscopic If Indicated (06/13/2018 12:43 AM CDT) Color, UA Light Yellow [facility] Clarity, UA Clear [facility] Specific [place], UA 1.006 1.001 - 1.035 [facility] pH, UA 6.5 5.0 - 8.0 [facility] Protein, UA Negative Negative [facility] Glucose, UA Negative Negative [facility] Ketones, UA Negative Negative [facility] Bilirubin, UA Negative Negative [facility] Blood, UA Negative Negative [facility] Nitrite, UA Negative Negative [facility] Leukocytes, UA Negative Negative [facility] Urobilinogen, UA 0.2 0.2 - 1.0 mg/dL [facility] Specimen Source [facility] Specimen Urine - Urine, Voided Performing Organization Address [facility] Centercode Phone Number [address] [address] [place] CTA Neck (06/13/2018 12:32 AM CDT) Narrative Performed At FINAL REPORT [facility] CT, CTANGIOBRAIN, CT, CAROTID, ANGIO BRAIN CT WITHOUT CONTRAST INDICATION: Stroke COMPARISON: None TECHNIQUE: Rapid acquisition spiral images were obtained between the aortic arch and the cranial vertex during intravenous contrast infusion to reconstruct axial images and angiographic 3D maximum intensity projections (MIP). 3-D volumetric reformatted images were created at a dedicated workstation. Precontrast images of the brain were also obtained. Stenosis evaluation reported in compliance with NASCET criteria. DOSE REDUCTION: Dose modulation, iterative reconstruction, and/or weight-based adjustment of the mA/kV was utilized to reduce the radiation dose to as low as reasonably achievable. FINDINGS: NECT BRAIN: Cerebral parenchyma: Unremarkable. Midline structures: Normally positioned. Cerebellum and brainstem: Normal. Ventricles: Normal volume. Extra-axial spaces: Unremarkable. Calvarium and skull base: Intact. Paranasal sinuses and mastoid air cells: Visible chambers are clear. Orbital contents: Included portions unremarkable. CTA BRAIN: Internal carotid arteries: Petrous, cavernous and supraclinoid portions patent. Middle cerebral arteries: Patent to distal branches. Anterior cerebral arteries: Patent. Intact A-comm. Basilar system: Patent vertebrobasilar system. Posterior cerebral arteries:Patent beyond the quadrigeminal segments. Venous opacification: Major dural sinuses unremarkable for bolus timing. Additional findings: None. CTA NECK: Common carotid arteries: The common carotid arteries are normal in size. Bifurcations: No flow-limiting stenosis. Cervical internal carotid arteries: No flow limiting stenosis. Vertebral arteries: Codominant. No origin stenosis. Arch anatomy: Conventional. Nonvascular findings: Osseous structures: No acute osseous abnormality. Intact calvarium and skull base. Cervical soft tissues: No adenopathy. Patent aerodigestive tract. Lung apices: No apical consolidation or pneumothorax. IMPRESSION: No acute intracranial abnormality. Unremarkable CTA of the head and neck. Signed: JR Castellon Robert MD Report Verified Date/Time:06/13/2018 01:55:22 Reading Location: [facility] B1 C013Y CT Body Reading Room Procedure Note Interface, External Ris In - 06/13/2018 1:57 AM CDT FINAL REPORT CT, CTANGIO BRAIN, CT, CAROTID, ANGIO BRAIN CT WITHOUT CONTRAST INDICATION: Stroke COMPARISON: None TECHNIQUE: Rapid acquisition spiral images were obtained between the aortic arch and the cranial vertex during intravenous contrast infusion to reconstruct axial images and angiographic 3D maximum intensity projections (MIP). 3-D volumetric reformatted images were created at a dedicated workstation. Precontrast images of the brain were also obtained. Stenosis evaluation reported in compliance with NASCET criteria. DOSE REDUCTION: Dose modulation, iterative reconstruction, and/or weight-based adjustment of the mA/kV was utilized to reduce the radiation dose to as low as reasonably achievable. FINDINGS: NECT BRAIN: Cerebral parenchyma: Unremarkable. Midline structures: Normally positioned. Cerebellum and brainstem: Normal. Ventricles: Normal volume. Extra-axial spaces: Unremarkable. Calvarium and skull base: Intact. Paranasal sinuses and mastoid air cells: Visible chambers are clear. Orbital contents: Included portions unremarkable. CTA BRAIN: Internal carotid arteries: Petrous, cavernous and supraclinoid portions patent. Middle cerebral arteries: Patent to distal branches. Anterior cerebral arteries: Patent. Intact A-comm. Basilar system: Patent vertebrobasilar system. Posterior cerebral arteries:Patent beyond the quadrigeminal segments. Venous opacification: Major dural sinuses unremarkable for bolus timing. Additional findings: None. CTA NECK: Common carotid arteries: The common carotid arteries are normal in size. Bifurcations: No flow-limiting stenosis. Cervical internal carotid arteries: No flow limiting stenosis. Vertebral arteries: Codominant. No origin stenosis. Arch anatomy: Conventional. Nonvascular findings: Osseous structures: No acute osseous abnormality. Intact calvarium and skull base. Cervical soft tissues: No adenopathy. Patent aerodigestive tract. Lung apices: No apical consolidation or pneumothorax. IMPRESSION: No acute intracranial abnormality. Unremarkable CTA of the head and neck. Signed: JR Castellon Robert MD Report Verified Date/Time: 06/13/2018 01:55:22 Reading Location: [address] Body Reading Room Performing Organization Address City/State/Zipcode Phone Number [place] CTA brain (06/13/2018 12:32 AM CDT) Narrative Performed At FINAL REPORT [facility] CT, CTANGIOBRAIN, CT, CAROTID, ANGIO BRAIN CT WITHOUT CONTRAST INDICATION: Stroke COMPARISON: None TECHNIQUE: Rapid acquisition spiral images were obtained between the aortic arch and the cranial vertex during intravenous contrast infusion to reconstruct axial images and angiographic 3D maximum intensity projections (MIP). 3-D volumetric reformatted images were created at a dedicated workstation. Precontrast images of the brain were also obtained. Stenosis evaluation reported in compliance with NASCET criteria. DOSE REDUCTION: Dose modulation, iterative reconstruction, and/or weight-based adjustment of the mA/kV was utilized to reduce the radiation dose to as low as reasonably achievable. FINDINGS: NECT BRAIN: Cerebral parenchyma: Unremarkable. Midline structures: Normally positioned. Cerebellum and brainstem: Normal. Ventricles: Normal volume. Extra-axial spaces: Unremarkable. Calvarium and skull base: Intact. Paranasal sinuses and mastoid air cells: Visible chambers are clear. Orbital contents: Included portions unremarkable. CTA BRAIN: Internal carotid arteries: Petrous, cavernous and supraclinoid portions patent. Middle cerebral arteries: Patent to distal branches. Anterior cerebral arteries: Patent. Intact A-comm. Basilar system: Patent vertebrobasilar system. Posterior cerebral arteries:Patent beyond the quadrigeminal segments. Venous opacification: Major dural sinuses unremarkable for bolus timing. Additional findings: None. CTA NECK: Common carotid arteries: The common carotid arteries are normal in size. Bifurcations: No flow-limiting stenosis. Cervical internal carotid arteries: No flow limiting stenosis. Vertebral arteries: Codominant. No origin stenosis. Arch anatomy: Conventional. Nonvascular findings: Osseous structures: No acute osseous abnormality. Intact calvarium and skull base. Cervical soft tissues: No adenopathy. Patent aerodigestive tract. Lung apices: No apical consolidation or pneumothorax. IMPRESSION: No acute intracranial abnormality. Unremarkable CTA of the head and neck. Signed: JR Castellon Robert MD Report Verified Date/Time:06/13/2018 01:55:22 Reading Location: [address] Body Reading Room Procedure Note Interface, External Ris In - 06/13/2018 1:57 AM CDT FINAL REPORT CT, CTANGIO BRAIN, CT, CAROTID, ANGIO BRAIN CT WITHOUT CONTRAST INDICATION: Stroke COMPARISON: None TECHNIQUE: Rapid acquisition spiral images were obtained between the aortic arch and the cranial vertex during intravenous contrast infusion to reconstruct axial images and angiographic 3D maximum intensity projections (MIP). 3-D volumetric reformatted images were created at a dedicated workstation. Precontrast images of the brain were also obtained. Stenosis evaluation reported in compliance with NASCET criteria. DOSE REDUCTION: Dose modulation, iterative reconstruction, and/or weight-based adjustment of the mA/kV was utilized to reduce the radiation dose to as low as reasonably achievable. FINDINGS: NECT BRAIN: Cerebral parenchyma: Unremarkable. Midline structures: Normally positioned. Cerebellum and brainstem: Normal. Ventricles: Normal volume. Extra-axial spaces: Unremarkable. Calvarium and skull base: Intact. Paranasal sinuses and mastoid air cells: Visible chambers are clear. Orbital contents: Included portions unremarkable. CTA BRAIN: Internal carotid arteries: Petrous, cavernous and supraclinoid portions patent. Middle cerebral arteries: Patent to distal branches. Anterior cerebral arteries: Patent. Intact A-comm. Basilar system: Patent vertebrobasilar system. Posterior cerebral arteries:Patent beyond the quadrigeminal segments. Venous opacification: Major dural sinuses unremarkable for bolus timing. Additional findings: None. CTA NECK: Common carotid arteries: The common carotid arteries are normal in size. Bifurcations: No flow-limiting stenosis. Cervical internal carotid arteries: No flow limiting stenosis. Vertebral arteries: Codominant. No origin stenosis. Arch anatomy: Conventional. Nonvascular findings: Osseous structures: No acute osseous abnormality. Intact calvarium and skull base. Cervical soft tissues: No adenopathy. Patent aerodigestive tract. Lung apices: No apical consolidation or pneumothorax. IMPRESSION: No acute intracranial abnormality. Unremarkable CTA of the head and neck. Signed: JR Cande, Jose CHAUDHRY Report Verified Date/Time: 06/13/2018 01:55:22 Reading Location: [facility] B1 C013Y CT Body Reading Room Performing Organization Address City/State/Zipcode Phone Number GE RIS after 08/22/2017 Insurance Payer Benefit Plan / Subscriber ID Type Phone Address Group BLUE CROSS/BLUE BCBS OS xxxxxxxxxxxx PPO [phone] [address] [employer]/PP[place] [address]
--- OUTSIDE RECORDS SUMMARY | 2018-08-23 11:45 | XMS REPORT ---
:1980 [facility] Address [address] [place] [address] Dr. Dangelo [address] [place] [id number] Care Team Providers Name Role Phone TOLU NICHOLS Unavailable Unavailable Problems This patient has no known problems. Allergies, Adverse Reactions, Alerts This patient has no known allergies or adverse reactions. Medications This patient has no known medications. Results Test Description Test Time Test Comments Text Results Atomic Results Result Comments CBC W/PLT COUNT & AUTO DIFFERENTIAL 2018-06-14 05:09:00 Test Item Value Reference Range Comments WHITE BLOOD CELL COUNT (BEAKER) (test ypjh=124) 6.8 K/ L 3.5-10.5 RED BLOOD CELL COUNT (BEAKER) (test dkzp=478) 4.70 M/ L 3.93-5.22 HEMOGLOBIN (BEAKER) (test hofe=143) 13.8 GM/DL 11.2-15.7 HEMATOCRIT (BEAKER) (test sybj=573) 42.8 % 34.1-44.9 MEAN CORPUSCULAR VOLUME (BEAKER) (test awvx=360) 91.1 fL 79.4-94.8 MEAN CORPUSCULAR HEMOGLOBIN (BEAKER) (test vyvf=907) 29.4 pg 25.6-32.2 MEAN CORPUSCULAR HEMOGLOBIN CONC (BEAKER) (test qpgk=204) 32.2 GM/DL 32.2- 35.5 RED CELL DISTRIBUTION WIDTH (BEAKER) (test xubb=209) 13.3 % 11.7-14.4 PLATELET COUNT (BEAKER) (test exlf=816) 252 K/CU MM 150-450 MEAN PLATELET VOLUME (BEAKER) (test npjw=795) 11.2 fL 9.4-12.3 NUCLEATED RED BLOOD CELLS (BEAKER) (test ucjg=712) 0 /100 WBC 0-0 NEUTROPHILS RELATIVE PERCENT (BEAKER) (test drae=886) 47 % LYMPHOCYTES RELATIVE PERCENT (BEAKER) (test njix=738) 37 % MONOCYTES RELATIVE PERCENT (BEAKER) (test ruai=069) 9 % EOSINOPHILS RELATIVE PERCENT (BEAKER) (test fzfu=498) 6 % BASOPHILS RELATIVE PERCENT (BEAKER) (test awuv=126) 1 % NEUTROPHILS ABSOLUTE COUNT (BEAKER) (test nyic=654) 3.21 K/ L 1.56-6.13 LYMPHOCYTES ABSOLUTE COUNT (BEAKER) (test eapc=988) 2.53 K/ L 1.18-3.74 MONOCYTES ABSOLUTE COUNT (BEAKER) (test imhm=716) 0.62 K/ L 0.24-0.36 EOSINOPHILS ABSOLUTE COUNT (BEAKER) (test kvqy=126) 0.38 K/ L 0.04-0.36 BASOPHILS ABSOLUTE COUNT (BEAKER) (test gcjh=842) 0.06 K/ L 0.01-0.08 IMMATURE GRANULOCYTES-RELATIVE PERCENT (BEAKER) (test 0 % 0-1 tdwg=1004) MR, BRAIN, WITHOUT [id number] 04:28:00Reason for exam:->StrokeIs the patient ?->NoWhat is the patient's sedation requirement?->No SedationFINAL REPORT MR, BRAIN, WITHOUT CONTRAST INDICATION: StrokeStroke TECHNIQUE: Multiplanar, multisequence MR imaging of the [...] is normal bone marrow signal intensity within thecalvarium and skull base. IMPRESSION: Unremarkable unenhanced MRI of the brain. Signed: JR Castellon Robert MDReport Verified Date/Time: 2017 04:28:39 Reading Location: [facility] C013Y CT Body Reading Room RAPID DRUG SCREEN, [id number] 22:13:00 Test Item Value Reference Range Comments BARBITURATE URINE (BEAKER) (test pakj=224) Negative Negative BENZODIAZEPINE SCREEN URINE (BEAKER) (test Negative Negative hxkm=965) COCAINE (METAB.) SCREEN (BEAKER) (test umhm=1938) Negative Negative METHADONE SCREEN (BEAKER) (test aosy=1545) Negative Negative OPIATE SCREEN URINE (BEAKER) (test rubk=496) Negative Negative CANNABINOID SCREEN URINE (BEAKER) (test vocj=922) Negative Negative AMPH/METHAMPH SCREEN (BEAKER) (test joaq=3497) Negative Negative PHENCYCLIDINE SCREEN URINE (BEAKER) (test bgtp=981) Negative Negative OXYCODONE SCREEN URINE (BEAKER) (test txbp=1463) Negative Negative DRUG CUTOFF CONC.Cocaine 300 ng/mL Cannabinoid 50 ng/mL Benzodiazepine 200 ng/mLBarbiturate 200 ng/ mLPhencyclidine 25 ng/mLOpiate 300 ng/mLMethadone 300 ng/mLAmphetamine/ 1000 ng/mL MethamphetamineOxycodone 300 ng/mLThis assay provides an unconfirmed qualitative test result for the clinical management of patients in emergency situations. Chain of custody not maintained. Some nndr-ink-ygurykb medications, as well as adulterants, may cause inaccurate results. Clinical correlation should be applied. A more comprehensive drug screen or confirmation of a detected drug may be performed upon request.HEMOGLOBIN [id number] 09:46:00 Test Item Value Reference Range Comments HEMOGLOBIN A1C (BEAKER) (test dyre=491) 5.7 % 4.3-6.1 VITAMIN [id number] 06:48:00 Test Item Value Reference Range Comments VITAMIN B12 (BEAKER) (test cipy=744) 423 pg/mL 213-816 TSH/FREE T4 IF [id number] 06:48:00 Test Item Value Reference Range Comments THYROID STIMULATING HORMONE (BEAKER) (test 3.37 uIU/mL 0.35-4.94 auvw=539) BASIC METABOLIC [id number] 04:35:00 Test Item Value Reference Range Comments SODIUM (BEAKER) (test 140 meq/L 136-145 pgmw=138) POTASSIUM (BEAKER) (test 4.1 meq/L 3.5-5.1 pdtw=288) CHLORIDE (BEAKER) (test 111 meq/L 98-107 jthk=272) CO2 (BEAKER) (test 21 meq/L 22-29 jxgh=927) BLOOD UREA NITROGEN 10 mg/dL 7-21 (BEAKER) (test wxjg=874) CREATININE (BEAKER) (test 0.70 mg/dL 0.57-1.25 voeh=338) GLUCOSE RANDOM (BEAKER) 98 mg/dL 70-105 (test nwqg=493) CALCIUM (BEAKER) (test 8.6 mg/dL 8.4-10.2 yvid=487) EGFR (BEAKER) (test mL/min/1.73 sq m INSUFFICIENT CLINICAL DATA wwhj=5706) TO CALCULATE ESTIMATED GFR. LIPID [id number] 04:21:00 Test Item Value Reference Range Comments TRIGLYCERIDES (BEAKER) (test idlo=870) 67 mg/dL CHOLESTEROL (BEAKER) (test fpzf=515) 160 mg/dL HDL CHOLESTEROL (BEAKER) (test oeqc=671) 31 mg/dL LDL CHOLESTEROL CALCULATED (BEAKER) (test 116 mg/dL vnte=356) Triglyceride Reference Range: Low Risk <150 Borderline 150- 199 High Risk 200-499 Very High Risk >=500Cholesterol Reference Range: Low Risk <200 Borderline 200-239 High Risk > 240HDL Cholesterol Reference Range: Low Risk >=60 High Risk <40LDL Cholesterol Reference Range: Optimal <100 Near Optimal 100-129 Borderline 130-159 High 160-189 Very High >=190CBC W/PLT COUNT & AUTO [id number] 03:57:00 Test Item Value Reference Range Comments WHITE BLOOD CELL COUNT (BEAKER) (test zdwb=476) 7.8 K/ L 3.5-10.5 RED BLOOD CELL COUNT (BEAKER) (test gruf=609) 4.37 M/ L 3.93-5.22 HEMOGLOBIN (BEAKER) (test pdio=704) 12.9 GM/DL 11.2-15.7 HEMATOCRIT (BEAKER) (test ntcd=125) 40.0 % 34.1-44.9 MEAN CORPUSCULAR VOLUME (BEAKER) (test lxde=036) 91.5 fL 79.4-94.8 MEAN CORPUSCULAR HEMOGLOBIN (BEAKER) (test 29.5 pg 25.6-32.2 mqrq=618) MEAN CORPUSCULAR HEMOGLOBIN CONC (BEAKER) (test 32.3 GM/DL 32.2-35.5 fwng=355) RED CELL DISTRIBUTION WIDTH (BEAKER) (test 13.2 % 11.7-14.4 husa=712) PLATELET COUNT (BEAKER) (test ljpm=015) 253 K/CU MM 150-450 MEAN PLATELET VOLUME (BEAKER) (test kqlt=712) 10.4 fL 9.4-12.3 NUCLEATED RED BLOOD CELLS (BEAKER) (test 0 /100 WBC 0-0 izyy=485) NEUTROPHILS RELATIVE PERCENT (BEAKER) (test 45 % xhho=233) LYMPHOCYTES RELATIVE PERCENT (BEAKER) (test 40 % dlme=724) MONOCYTES RELATIVE PERCENT (BEAKER) (test 9 % mylz=739) EOSINOPHILS RELATIVE PERCENT (BEAKER) (test 5 % epze=215) BASOPHILS RELATIVE PERCENT (BEAKER) (test 1 % yqau=836) NEUTROPHILS ABSOLUTE COUNT (BEAKER) (test 3.51 K/ L 1.56-6.13 wdgx=123) LYMPHOCYTES ABSOLUTE COUNT (BEAKER) (test 3.13 K/ L 1.18-3.74 esmv=171) MONOCYTES ABSOLUTE COUNT (BEAKER) (test 0.71 K/ L 0.24-0.36 kowf=423) EOSINOPHILS ABSOLUTE COUNT (BEAKER) (test 0.37 K/ L 0.04-0.36 yuyf=251) BASOPHILS ABSOLUTE COUNT (BEAKER) (test 0.04 K/ L 0.01-0.08 nsol=349) IMMATURE GRANULOCYTES-RELATIVE PERCENT (BEAKER) 0 % 0-1 (test fouz=9504) CT, CAROTID, [id number] 01:55:00Verify current renal function studies, consider renal protection order set as neededFINAL REPORT CT, CTANGIO BRAIN, CT, CAROTID, ANGIOBRAIN CT WITHOUT CONTRAST INDICATION: Stroke COMPARISON: None TECHNIQUE:Rapid acquisition spiral images were obtained between the aortic arch and the cranial vertex during intravenous contrast infusion to reconstruct axial images and angiographic 3D maximum intensity projections (MIP). 3-D volumetric reformatted images were created at a dedicated workstation. Precontrast images of the brain were also obtained. Stenosis evaluation reported in compliance with NASCET criteria. DOSE REDUCTION : Dose modulation, iterative reconstruction, and/or weight-based adjustment of the mA/kV was utilized to reduce the radiation dose to as low as reasonably achievable. FINDINGS:NECT BRAIN:Cerebral parenchyma: Unremarkable.Midline structures: Normally positioned.Cerebellum and brainstem: Normal.Ventricles: Normal volume.Extra-axial spaces: Unremarkable.Calvarium and skull base: Intact.Paranasal sinuses and mastoid air cells: Visible chambers are clear.Orbital contents: Included portions unremarkable. CTA BRAIN:Internal carotid arteries: Petrous, cavernous and supraclinoid portions patent. Middle cerebral arteries: Patent to distal branches.Anterior cerebral arteries: Patent. Intact A-comm.Basilar system: Patent vertebrobasilar system.Posterior cerebral arteries:Patent beyond the quadrigeminal segments.Venous opacification : Major dural sinuses unremarkable for bolus timing.Additional findings: None. CTA NECK:Common carotid arteries: The common carotid arteries are normal in size. Bifurcations: No flow-limiting stenosis. Cervical internal carotid arteries: No flow limiting stenosis.Vertebral arteries: Codominant. No origin stenosis.Arch anatomy: Conventional. Nonvascular findings:Osseous structures: No acute osseous abnormality. Intact calvarium and skull base.Cervical soft tissues: No adenopathy. Patent aerodigestive tract.Lung apices: No apical consolidation or pneumothorax. IMPRESSION: No acute intracranial abnormality. Unremarkable CTA of the head and neck. Signed: JR Castellon Robert MDReport Verified Date/Time: 06/13/2018 01:55:22 Reading Location: [place] [address]Y CT Body Reading Room CT, CTANGIO [id number] 01:55:00Verify current renal function studies, consider renal protection order set as neededFINAL REPORT CT, CTANGIO BRAIN, CT, CAROTID, ANGIOBRAIN CT WITHOUT CONTRAST INDICATION: Stroke COMPARISON: None TECHNIQUE:Rapid acquisition spiral images were obtained between the [...] dose to as low as reasonably achievable. FINDINGS:NECT BRAIN:Cerebral parenchyma: Unremarkable.Midline structures: Normally positioned.Cerebellum and brainstem: Normal.Ventricles: Normal volume.Extra-axial spaces: Unremarkable.Calvarium and skull base: Intact.Paranasal sinuses and mastoid air cells: Visible chambers are clear.Orbital contents: Included portions unremarkable. CTA BRAIN:Internal carotid arteries: Petrous, cavernous and supraclinoid portions patent. Middle cerebral arteries: Patent to distal branches.Anterior cerebral arteries: Patent. Intact A-comm.Basilar system: Patent vertebrobasilar system.Posterior cerebral arteries:Patent beyond the quadrigeminal segments.Venous opacification : Major dural sinuses unremarkable for bolus timing.Additional findings: None. CTA NECK:Common carotid arteries: The common carotid arteries are normal in size. Bifurcations: No flow-limiting stenosis. Cervical internal carotid arteries: No flow limiting stenosis.Vertebral arteries: Codominant. No origin stenosis.Arch anatomy: Conventional. Nonvascular findings:Osseous structures: No acute osseous abnormality. Intact calvarium and skull base.Cervical soft tissues: No adenopathy. Patent aerodigestive tract.Lung apices: No apical consolidation or pneumothorax. IMPRESSION: No acute intracranial abnormality. Unremarkable CTA of the head and neck. Signed: JR Castellon Robert MDReport Verified Date/Time: 06/13/2018 01:55:22 Reading Location: [address] Body Reading Room URINALYSIS WITH MICROSCOPIC IF [id number] 01:17: 00 Test Item Value Reference Range Comments COLOR (BEAKER) (test xcce=541) Light Yellow CLARITY (BEAKER) (test wpor=390) Clear SPECIFIC GRAVITY UA (BEAKER) (test jcfv=719) 1.006 1.001-1.035 PH UA (BEAKER) (test tujr=958) 6.5 5.0-8.0 PROTEIN UA (BEAKER) (test wckm=546) Negative Negative GLUCOSE UA (BEAKER) (test nhzk=959) Negative Negative KETONES UA (BEAKER) (test kzeh=966) Negative Negative BILIRUBIN UA (BEAKER) (test sorj=838) Negative Negative BLOOD UA (BEAKER) (test szwy=125) Negative Negative NITRITE UA (BEAKER) (test eztc=041) Negative Negative LEUKOCYTE ESTERASE UA (BEAKER) (test csgd=228) Negative Negative UROBILINOGEN UA (Bit[employer]stant) (test xzmk=739) 0.2 mg/dL 0.2-1.0 SOURCE(QVPNAKER) (test pvgr=6869)
--- NOTE | 2018-08-23 12:18 | RAD REPORT ---
EXAM DESCRIPTION: CT - Ct Stroke Brain Wo Cont - 08/23/2018 12:10 pm CLINICAL HISTORY: CONFUSED CVA, drowsiness COMPARISON: Ct Stroke Brain Wo Cont dated 06/12/2018 TECHNIQUE: All CT scans are performed using dose optimization technique as appropriate and may inclu de automated exposure control or mA/KV adjustment according to patient size. FINDINGS: No intracranial hemorrhage, hydrocephalus or extra-axial fluid collection.No areas of brai n edema or evidence of midline shift. Small mucous retention cyst is seen in the right maxillary antrum. The paranasal sinuses and mastoids are otherwise clear. The calvarium is intact. IMPRESSION: No acute intracranial abnormality. If there is continued clinical concern for CVA, MR i maging of the brain would be recommended.
[2018-08-23 12:26] LABS: Absolute Lymphocytes (CBC) 2.8 K/uL (0.7-4.9); Absolute Monocytes 0.8 K/uL (0.1-1.3); Absolute Neutrophil 3.4 K/uL (1.8-8.0); Basophils % 0.9 % (0-1.3); Eosinophils % 3.5 % (0-4.4); Hematocrit 42.5 % (36.0-45.0); Lymphocytes % 37.7 % (15.3-44.8); MCH 31.3 pg (27.0-35.0); MCV 90.3 fL (80-100); MPV 10.4 fL (7.6-11.3); Monocytes % 11.5 % (3.3-12.3); RBC Red Blood Cell Count 4.71 M/uL (3.86-4.86)
[2018-08-23 12:30] LABS: Protime INR 1.13
[2018-08-23 12:38] LABS: Potassium 4.5 mmol/L (3.5-5.1)
[2018-08-23] MEDS ORDERED: NA CHLORIDE 0.9% 0 ML IV ONE (12:39)
[2018-08-23] MEDS ORDERED: ALTEPLASE 0 ML IV ONE (12:39)
--- NOTE | 2018-08-23 14:13 | EKG ---
Test Date: 2018-08-23 Test Time: 12:11:12 Training Administrator: SHANNAN MEASUREMENT RESULTS: Intervals: Rate: 72 MO: 132 QRSD: 84 QT: 392 QTc: 429 [place]: P: 51 MO: 132 QRS: 52 T: 47 INTERPRETIVE STATEMENTS: Normal sinus rhythm Normal ECG Compared to ECG 06/12/2018 20:02:55 No significant changes Electronically Signed On 08-23-18 14:12:38 [employer] by Abdelrahman Do
--- NOTE | 2018-08-23 14:17 | RAD REPORT ---
EXAM DESCRIPTION: Gracie Single View08/23/2018 2:11 pm CLINICAL HISTORY: Chest pain COMPARISON: May 2018 FINDINGS: The lungs appear clear of acute infiltrate. The heart is normal size IMPRESSION: No acute abnormalities displayed
--- NOTE | 2018-08-23 14:24 | RAD REPORT ---
EXAM DESCRIPTION: MRI - Brain W/Wo Cont - 08/23/2018 1:47 pm CLINICAL HISTORY: Bilateral arm numbness COMPARISON: August 23, [address] TECHNIQUE: Axial, sagittal, and coronal magnetic images of the brain were obtained. Fourteen cc Mult iHance administered intravenously FINDINGS: No abnormal signal within the brain is noted. The ventricles are normal in caliber. Diffusion-weighted sequences do not demonstrate evidence of an acute infarction. No abnormal enhancement within the brain is seen. An extra-axial fluid collection is not noted. Mucus retention cysts present the right maxillary sinus IMPRESSION: Unremarkable brain MRI.
--- NOTE | 2018-08-23 14:25 | RAD REPORT ---
EXAM DESCRIPTION: MRI - MRA Neck W/Wo Cont - 08/23/2018 1:46 pm CLINICAL HISTORY: Bilateral arm numbness COMPARISON: None. TECHNIQUE: Magnetic resonance angiogram of the neck was performed. 14 cc MultiHance was administered intravenously. 3D MIPS reconstruction performed FINDINGS: The common carotid, internal carotid and external carotid arteries do not demonstrate a si gnificant stenosis. An aneurysm is not seen. The vertebral arteries are codominant without visualization of an abnormality. IMPRESSION: Unremarkable MRA neck NASCET criteria used. Mild 0-49% stenosis Moderate 50-69% stenosis Severe 70-99% stenosis
--- NOTE | 2018-08-23 14:26 | RAD REPORT ---
EXAM DESCRIPTION: MRI - MRA Head Wo Cont - 08/23/2018 1:47 pm CLINICAL HISTORY: Bilateral arm numbness COMPARISON: None. TECHNIQUE: Magnetic resonance angiogram of the head was performed. 3D mid reconstruction performed FINDINGS: The visualized anterior cerebral, middle cerebral, posterior cerebral, basilar and distal internal carotid arteries do not demonstrate a significant stenosis. An aneurysm is not seen IMPRESSION: Unremarkable MRA head
--- NOTE | 2018-08-23 15:09 | ER ---
Nurse's Notes [facility] Name: Padma Raya Age: 37 yrs Sex: Female : 1980 Arrival Date: 08/23/2018 Time: 11:43 Bed 2 Private MD: Diagnosis: Anxiety disorder, unspecified;Hyperventilation Presentation: 08/23 11:43 Presenting complaint: states: "She called me and couldn't get out what she was ss trying to say. This happened 3 months ago and she had to get the clot buster medication, and her symptoms ended up getting better later and all her tests were normal. This time she doesn't have a headache." Pt reports a sensation to both of her hands when she rubs them together that she cannot explain and reports also that it is harder for her than usual to complete a task or answer a question. Transition of care: patient was not received from another setting of care. Onset of symptoms was August 23, 2018 at 11:05. Risk Assessment: Do you want to hurt yourself or someone else? Patient reports no desire to harm self or others. Initial Sepsis Screen: Does the patient meet any 2 criteria? No. Patient's initial sepsis screen is negative. Does the patient have a suspected source of infection? No. Patient's initial sepsis screen is negative. Care prior to arrival: None. 11:43 Method Of Arrival: Ambulatory ss 11:43 Acuity: MADY 2 ss Historical: - Allergies: 12:02 No Known Allergies; hb - PSHx: 12:02 Ectopic ; hb - Immunization history:: Adult Immunizations up to date. - Social history:: Smoking status: Patient/guardian denies using tobacco. - Ebola Screening: : No symptoms or risks identified at this time. Screenin:01 Abuse screen: Denies threats or abuse. Denies injuries from another. Nutritional hb screening: No deficits noted. Tuberculosis screening: No symptoms or risk factors identified. Fall Risk None identified. 12:11 Patient has been NPO before screening. The patient is alert, able to follow commands. hb The patient does not exhibit slurred or garbled speech The patient is not exhibiting difficulty speaking. The patient does not exhibit difficulty understanding words. The patient is able to swallow own secretions with no drooling or need for suction. Patient tolerated one teaspoon of water. No drooling, immediate coughing, gurgling, or clearing of the throat was noted. The patient tolerated 90mL of water. No drooling, immediate coughing, gurgling, or clearing of the throat was noted. The patient passed the bedside swallow screening. Oral medications may be given as ordered. Contact Physician for further diet orders. Assessment: 11:46 Reassessment: Dr. Quintana at bedside. hb 11:50 General: Appears in no apparent distress. Behavior is cooperative, anxious, crying. hb Pain: Denies pain. Neuro: Level of Consciousness is awake, alert, obeys commands, Oriented to person, place, time, situation, Heading Saw Operator are equal bilaterally Moves all extremities. Gait is steady, Speech is normal, Facial symmetry appears normal, Pupils are PERRLA, Intact Reports tingling in bilateral hands, bilateral leg weakness. Cardiovascular: Heart tones S1 S2 present Capillary refill < 3 seconds Patient's skin is warm and dry. Respiratory: Airway is patent Trachea midline Respiratory effort is even, unlabored, Respiratory pattern is regular, symmetrical, Breath sounds are clear bilaterally. GI: No signs and/or symptoms were reported involving the gastrointestinal system. : No signs and/or symptoms were reported regarding the genitourinary system. EENT: No signs and/or symptoms were reported regarding the EENT system. Derm: Skin is intact, is healthy with good turgor, Skin is pink, warm \\T\\ dry. Musculoskeletal: No signs and/or symptoms reported regarding the musculoskeletal system. 11:55 Reassessment: Code Stroke called. hb 11:56 Reassessment: blood sent to lab with purple stroke stickers, outside lab notified. hb 11:58 Reassessment: Pt transported to CT. hb 12:09 Reassessment: Pt returned from CT. hb 12:11 Reassessment: Dr. Quintana at bedside. hb 12:20 Reassessment: Awaiting Dr. Thao to come evaluate pt. hb 12:30 Reassessment: Dr. Thao and Dr. Quintana at bedside. hb 12:38 Reassessment: Decision to TPA delayed due to extended neuro exam. hb 12:49 Reassessment: Dr. Thao and Dr. Quintana remain at bedside, evaluating pt. hb 12:49 Reassessment: Decision to NOT TPA. hb 12:50 Reassessment: Pt transported to MRI with tech. remains at bedside. hb 14:02 Reassessment: Pt returned from MRI. NAD. VSS. No changes from previously documented hb assessment. 14:45 Reassessment: Patient appears in no apparent distress at this time. Patient and/or hb family updated on plan of care and expected duration. Pain level reassessed. Patient is alert, oriented x 3, equal unlabored respirations, skin warm/dry/pink. Patient states feeling better. Patient states symptoms have improved. Vital Signs: 11:48 BP 146 / 92; Pulse 82; Resp 18; Temp 97.9; Pulse Ox 100% ; Pain 0/10; sv 12:45 BP 138 / 88; Pulse 80; Resp 16; Pulse Ox 100% on R/A; Pain 0/10; hb 14:05 BP 124 / 80; Pulse 76; Resp 16; Pulse Ox 100% on R/A; hb 14:45 BP 117 / 79; Pulse 74; Resp 16; Pulse Ox 99% on R/A; hb NIH Stroke Scale Scores: 12:19 NIHSS Score: 4 hb 14:44 NIHSS Score: 0 hb ED Course: 11:43 Patient arrived in ED. ph 11:50 Inserted saline lock: 22 gauge in right antecubital area, using aseptic technique. ss Blood collected. 11:52 Patient has correct armband on for positive identification. Placed in gown. Bed in low hb position. Call light in reach. Side rails up X 1. 11:55 Arm band placed on. hb 11:59 Fausto Quintana MD is Attending Physician. kdr 11:59 Triage completed. ss 12:08 Patient moved back from CT. sv 12:10 Melisa Samayoa, RN is Primary Nurse. hb 12:19 EKG done, by marketing technologist. reviewed by Fausto Quintana MD. at1 12:43 CT Stroke Brain w/o Contrast Sent. sv 12:44 Basic Metabolic Panel Sent. sv 12:44 CBC with Diff Sent. sv 12:44 Protime (+inr) Sent. sv 12:44 Ptt, Activated Sent. sv 13:02 Patient moved to MRI via stretcher. ka 13:43 Radiology exam delayed due to pt in MRI. jb2 13:47 MRI completed. Patient tolerated well. em2 15:36 No provider procedures requiring assistance completed. IV discontinued, intact, hb bleeding controlled, No redness/swelling at site. Pressure dressing applied. Administered Medications: No medications were administered Point of Care Testing: Blood Glucose: 11:48 Blood Glucose: 88 mg/dL; hb Ranges: Outcome: 15:08 Discharge ordered by . kdr 15:36 Discharged to home ambulatory, with significant other. hb 15:36 Condition: stable 15:36 Discharge instructions given to patient, Instructed on discharge instructions, follow up and referral plans. medication usage, Demonstrated understanding of instructions, follow-up care, medications, Prescriptions given X 1. 15:45 Patient left the ED. sv NIH Stroke Scale - NIH Stroke Score Date: 08/23/2018 Time: 12:19 Total Score = 4 1a. Level of Consciousness (LOC) - 0(Alert) 1b. Level of Consciousness (LOC) (Year \\T\\ Age) - 0(Both) 1c. LOC Commands (Open \\T\\ Closes Eyes/Mid Level Java Developer) - 0(Both) 2. Best Gaze (Lateral Gaze Paresis) - 0(Normal) 3. Visual Field Loss - 0(No visual loss) 4. Facial Palsy - 0(Normal) 5a. Left Arm: Motor (10-second hold) - 1(Drift) 5b. Right Arm: Motor (10-second hold) - 1(Drift) 6a. Left Leg: Motor (5-second hold - always test supine) - 1(Drift) 6b. Right Leg: Motor (5-second hold - always test supine) - 1(Drift) 7. Limb Ataxia (finger/nose \\T\\ heel/mcbride - test with eyes open) - 0(Absent) 8. Sensory Loss (pinprick arms/legs/face) - 0(Normal) 9. Best Language: Aphasia (description/naming/reading) - 0(No aphasia) 10. Dysarthria (speech clarity - read or repeat words) - 0(Normal) 11. Extinction and Inattention (visual/tactile/auditory/spatial/personal) - 0(No abnormality) Initials: hb NIH Stroke Scale - NIH Stroke Score Date: 08/23/2018 Time: 14:44 Total Score = 0 1a. Level of Consciousness (LOC) - 0(Alert) 1b. Level of Consciousness (LOC) (Year \\T\\ Age) - 0(Both) 1c. LOC Commands (Open \\T\\ Closes Eyes/Mid Level Java Developer) - 0(Both) 2. Best Gaze (Lateral Gaze Paresis) - 0(Normal) 3. Visual Field Loss - 0(No visual loss) 4. Facial Palsy - 0(Normal) 5a. Left Arm: Motor (10-second hold) - 0(No drift) 5b. Right Arm: Motor (10-second hold) - 0(No drift) 6a. Left Leg: Motor (5-second hold - always test supine) - 0(No drift) 6b. Right Leg: Motor (5-second hold - always test supine) - 0(No drift) 7. Limb Ataxia (finger/nose \\T\\ heel/mcbride - test with eyes open) - 0(Absent) 8. Sensory Loss (pinprick arms/legs/face) - 0(Normal) 9. Best Language: Aphasia (description/naming/reading) - 0(No aphasia) 10. Dysarthria (speech clarity - read or repeat words) - 0(Normal) 11. Extinction and Inattention (visual/tactile/auditory/spatial/personal) - 0(No abnormality) Initials: hb Signatures: Edith Faulkner, Fausto Acevedo RN, MD MD [facility] Jason Renee2 Zaira Perez RN RN ss Marv Puckett em2 Ashlie Champagne, director of scientific research EKG Tat1 Mallory Liz RN RN ph Aguilera, Katelyn ka Baxter, Heather, RN RN hb Corrections: (The following items were deleted from the chart) 11:56 11:54 Reassessment: Code Stroke called hb hb 11:56 11:48 Reassessment: Dr.; Quintana at bedside hb hb 12:01 11:53 Reassessment: Code Stroke called hb hb 12:04 11:46 Reassessment: Dr.; Quintana at bedside hb hb 13:40 12:38 Reassessment: TPA administration delayed due to extended neuro exam hb hb
--- NOTE | 2018-08-23 15:09 | EDPHYS ---
Physician Documentation [facility] Name: Padma Raya Age: 37 yrs Sex: Female : 1980 Arrival Date: 08/23/2018 Time: 11:43 Bed 2 Private MD: ED Physician Fausto Quintana Historical: - Allergies: 08/23 12:02 No Known Allergies; hb - PSHx: 12:02 Ectopic ; hb - Immunization history:: Adult Immunizations up to date. - Social history:: Smoking status: Patient/guardian denies using tobacco. - Ebola Screening: : No symptoms or risks identified at this time. Vital Signs: 11:48 BP 146 / 92; Pulse 82; Resp 18; Temp 97.9; Pulse Ox 100% ; Pain 0/10; sv 12:45 BP 138 / 88; Pulse 80; Resp 16; Pulse Ox 100% on R/A; Pain 0/10; hb 14:05 BP 124 / 80; Pulse 76; Resp 16; Pulse Ox 100% on R/A; hb 14:45 BP 117 / 79; Pulse 74; Resp 16; Pulse Ox 99% on R/A; hb NIH Stroke Scale Scores: 12:19 NIHSS Score: 4 hb 14:44 NIHSS Score: 0 hb MDM: 15:08 Patient medically screened. kdr 08/23 11:52 Order name: Glucose, Ancillary Testing; Complete Time: 12:28 EDMS 08/23 12:00 Order name: Basic Metabolic Panel kdr 08/23 12:00 Order name: CBC with Diff kdr 08/23 12:00 Order name: Protime (+inr) kdr 08/23 12:00 Order name: Ptt, Activated kdr 08/23 12:38 Order name: Basic Metabolic Panel; Complete Time: 13:17 EDMS 08/23 12:00 Order name: CT Stroke Brain w/o Contrast kdr 08/23 12:00 Order name: Stroke CXR 1 View kdr 08/23 12:19 Order name: CT; Complete Time: 12:28 EDMS 08/23 12:39 Order name: CBC with Automated Diff; Complete Time: 13:17 EDMS 08/23 12:49 Order name: Protime (+INR); Complete Time: 13:17 EDMS 08/23 12:49 Order name: PTT, Activated Partial Thromb; Complete Time: 13:17 EDMS 08/23 14:21 Order name: RAD; Complete Time: 14:58 EDMS 08/23 14:27 Order name: MRI; Complete Time: 14:58 EDMS 08/23 12:00 Order name: EKG; Complete Time: 12:07 kdr 08/23 12:00 Order name: Accucheck; Complete Time: 12:03 kdr 08/23 12:00 Order name: Cardiac monitoring; Complete Time: 12:03 kdr 08/23 12:00 Order name: EKG - Nurse/Tech; Complete Time: 12:43 kdr 08/23 12:00 Order name: IV Saline Lock; Complete Time: 12:03 kdr 08/23 12:00 Order name: Labs collected and sent; Complete Time: 12:04 kdr 08/23 12:00 Order name: NPO; Complete Time: 12:04 kdr 08/23 12:00 Order name: O2 Per Protocol; Complete Time: 12:04 kdr 08/23 12:00 Order name: O2 Sat Monitoring; Complete Time: 12:04 kdr 08/23 12:00 Order name: Stroke Swallow Screen; Complete Time: 12:10 kdr 08/23 14:27 Order name: MRI; Complete Time: 14:58 EDMS 08/23 14:27 Order name: MRI; Complete Time: 14:58 EDMS Administered Medications: No medications were administered Point of Care Testing: Blood Glucose: 11:48 Blood Glucose: 88 mg/dL; hb Ranges: Critical Glucose Levels:Adult <50 mg/dl or >400 mg/dl <40 mg/dl or >180 mg/dl Disposition: 08/23/18 15:08 Discharged to Home. Impression: Anxiety disorder, unspecified, Hyperventilation. - Condition is Stable. - Discharge Instructions: Hyperventilation, Panic Attacks, [id number], Generalized Anxiety Disorder. - Prescriptions for Xanax 0.5 mg Oral Tablet - take 1 tablet by ORAL route every 8 hours As needed; 10 tablet. - Medication Reconciliation Form, Thank You Letter form. - Follow up: Private Physician; When: 2 - 3 days; Reason: If symptoms return, Further diagnostic work-up, Recheck today's complaints, Continuance of care, Re-evaluation by your physician. - Problem is an acute exacerbation. - Symptoms are resolved. NIH Stroke Scale - NIH Stroke Score Date: 08/23/2018 Time: 12:19 Total Score = 4 1a. Level of Consciousness (LOC) - 0(Alert) 1b. Level of Consciousness (LOC) (Year \T\ Age) - 0(Both) 1c. LOC Commands (Open \T\ Closes Eyes/Home Care Giver) - 0(Both) 2. Best Gaze (Lateral Gaze Paresis) - 0(Normal) 3. Visual Field Loss - 0(No visual loss) 4. Facial Palsy - 0(Normal) 5a. Left Arm: Motor (10-second hold) - 1(Drift) 5b. Right Arm: Motor (10-second hold) - 1(Drift) 6a. Left Leg: Motor (5-second hold - always test supine) - 1(Drift) 6b. Right Leg: Motor (5-second hold - always test supine) - 1(Drift) 7. Limb Ataxia (finger/nose \T\ heel/mcbride - test with eyes open) - 0(Absent) 8. Sensory Loss (pinprick arms/legs/face) - 0(Normal) 9. Best Language: Aphasia (description/naming/reading) - 0(No aphasia) 10. Dysarthria (speech clarity - read or repeat words) - 0(Normal) 11. Extinction and Inattention (visual/tactile/auditory/spatial/personal) - 0(No abnormality) Initials: NIH Stroke Scale - NIH Stroke Score Date: 08/23/2018 Time: 14:44 Total Score = 0 1a. Level of Consciousness (LOC) - 0(Alert) 1b. Level of Consciousness (LOC) (Year \T\ Age) - 0(Both) 1c. LOC Commands (Open \T\ Closes Eyes/Home Care Giver) - 0(Both) 2. Best Gaze (Lateral Gaze Paresis) - 0(Normal) 3. Visual Field Loss - 0(No visual loss) 4. Facial Palsy - 0(Normal) 5a. Left Arm: Motor (10-second hold) - 0(No drift) 5b. Right Arm: Motor (10-second hold) - 0(No drift) 6a. Left Leg: Motor (5-second hold - always test supine) - 0(No drift) 6b. Right Leg: Motor (5-second hold - always test supine) - 0(No drift) 7. Limb Ataxia (finger/nose \T\ heel/mcbride - test with eyes open) - 0(Absent) 8. Sensory Loss (pinprick arms/legs/face) - 0(Normal) 9. Best Language: Aphasia (description/naming/reading) - 0(No aphasia) 10. Dysarthria (speech clarity - read or repeat words) - 0(Normal) 11. Extinction and Inattention (visual/tactile/auditory/spatial/personal) - 0(No abnormality) Initials: hb Addendum: 09/02/2018 13:00 Addendum: CC: Difficulty speaking, cramping and numbness in her hands HPI: The kdr patient had similar s/s several months ago and states she was given tPA. All testing at that time was normal and no CVA was identified. At this time, she has had recurrence of the same s/s. She initially had difficulty speaking and her hands were apparently spasming bilaterally. After she was in the department for about 30 minutes, she began to regain her speech and her hand spasms relaxed. She had no other ? in the ED and has no risk factors for CVA. She has no history to suggest cord injury or compression. . Addendum: ROS: Const: No fever, chills or weight loss, Eyes: no visual changes or c/o, Neck: no pain or injury, CV: no CP or palpitations, Resp: no SOB, cough or congestion, Abd: no n/v/d or pain, Back: no pain or injury, : no pain or bleeding, MS/Ext: no pain, injury, swelling, tingling, Skin: no lacerations, pain, injury, skin turgor good, Neuro: CN grossly intact difficulty speaking and bilateral upper extremity weakness, Psych: Appropriate for age, Allergy/Immunology: no rashes or other s/s, Endo: no evidence of polyuria, polydipsia, temperature control or other s/s . Addendum: Exam: Const: WDWN WF in moderate distress, Head/Face: no injury, pain or deformity, Eyes: PERRLA, ENT: no pain, injury or bleeding, Neck: no pain, injury or deformity, full ROM, Chest/Axilla: No pain, injury or deformity, CV: no rubs, gallops, murmurs, regular rate, Resp: CTAB, regular rate, Abd/GI: soft, NT, BS present in all quads and normal, Back: no injury or deformity, full ROM, MS/Extremity: no injury or deformity, FROM, distal pulses good and equal, Skin: no rashes, ecchymosis skin turgor good, Neuro: CN grossly intact, expressive aphasia, bilateral upper extremity hand spasms. Initially, bilateral arm strength was 2/5 and symmetric Psych: appropriate for age, no SI/HI, no depression . Addendum: MDM (Discharge) All VS and nursing notes reviewed. The patient was counseled on the results and need for follow-up. The patient improved significantly over the first hour in the department. She has had a lot of stress at work. I had lengthy discussion with the patient and family about her s/s and it was agreed to a trial of anxiolytic would be appropriate. The patient was discharged in stable condition. They were happy with the care they received and the plan for d/c and follow-up. . Signatures: Dispatcher [employer] EDEdith Love RN RN sv Fausto Quintana MD MD [facility] Melisa Samayoa RN RN Corrections: (The following items were deleted from the chart) 08/23 15:45 15:08 08/23/2018 15:08 Discharged to Home. Impression: Anxiety disorder, sv unspecified; Hyperventilation. Condition is Stable. Forms are Medication Reconciliation Form, Thank You Letter, Antibiotic Education, Prescription Opioid Use. Follow up: Private Physician; When: 2 - 3 days; Reason: If symptoms return, Further diagnostic work-up, Recheck today's complaints, Continuance of care, Re-evaluation by your physician. Problem is an acute exacerbation. Symptoms are resolved. kdr
== END 2018-08-23 15:45 | disposition home or self-care (01) ==
LOC: ER 11:42
DX: R06.4 Hyperventilation (principal); F41.9 Anxiety disorder, unspecified
CPT/HCPCS: 36415; 70450; 70544; 70549; 70553; 71045; 80048; 82962; 85025; 85610; 85730; 93005; 99284; A9577; J2997